=== PATIENT | male | born 1975 | race Two or more races ===

== ENCOUNTER 2022-06-14 12:20 | Inpatient (IN) | payer MEDICAID ==
[~2022-06-14] VITALS: Ht 172.7 cm; Wt 80.8 kg
[2022-06-14 13:25] LABS: Basophils # (auto) 0.1 10 ^3/uL (0-0.2); Eosinophils # (auto) 0.2 10 ^3/uL (0-0.8); Hemoglobin 8.1 g/dL (13.5-17.5); Nucleated Red Blood Cells % 0.1 %
[2022-06-14 13:26] LABS: Eosinophils % (auto) 3.1 % (0.0-7.0); Hematocrit 27.3 % (41.0-53.0); Lymphocytes # (auto) 1.3 10 ^3/uL (0.4-5.4); Lymphocytes % (auto) 26.2 % (10.0-50.0); Mean Corpuscular Hemoglobin 18.4 pg (28.0-32.0); Mean Corpuscular Hgb Conc. 29.5 g/dL (32.0-36.0); Mean Corpuscular Volume 62.4 fL (80.0-100.0); Monocytes # (auto) 0.4 10 ^3/uL (0-1.3); Monocytes % (auto) 7.2 % (0.0-12.0); Neutrophils # (auto) 3.1 10 ^3/uL (1.6-8.6); Neutrophils % (auto) 62.5 % (37.0-80.0); Red Blood Cells 4.38 10^6/uL (4.5-5.90)
[2022-06-14 13:43] LABS: Albumin 2.9 g/dL (3.4-5.0); BUN/Creatinine Ratio 7.5; Calcium 8.2 mg/dL (8.5-10.1); Potassium 3.4 mmol/L (3.5-5.1)
[2022-06-14 13:44] LABS: Red Cell Distribution Width 21.8 % (11.8-14.3)
[2022-06-14 13:46] LABS: Bilirubin, Total 2.1 mg/dL (0.2-1.0); Total Protein 6.3 g/dL (6.4-8.2)
[2022-06-14] MEDS ORDERED: ONDANSETRON HCL 4 MG/2 ML VIAL IV PRN (19:30)
[2022-06-14] MEDS ORDERED: PANTOPRAZOLE 40 MG/10 ML VIAL INJ IV ONE (19:30)
[2022-06-14] MEDS ORDERED: SODIUM CHLORIDE 0.9% 2,000 ML IV ONE (19:30)
[2022-06-14 20:43] LABS: INR 1.51 (0.9-1.15)
[2022-06-14 20:47] LABS: % Iron Saturation 4.8 % (20-55)
[2022-06-14 20:53] LABS: Cholesterol 89 mg/dL (< 200); HDL Cholesterol 43 mg/dL (40-59); LDL Cholesterol 51 mg/dL (< 100); Triglycerides 44 mg/dL (< 150)
[2022-06-14 20:59] LABS: Folate (Folic Acid) > 24.00 ng/mL (5.38-24)
[2022-06-14] MEDS: HYDROcodone-ACET 5/325MG TAB PO PRN (22:47)
[2022-06-14] MEDS: LACTATED RINGER'S 1,000 ML IV SCH (22:52)
[2022-06-15] MEDS: HYDROcodone-ACET 5/325MG TAB PO PRN ×2 (04:55→18:41)
[2022-06-15] MEDS: FERROUS SULFATE 325mg EC TAB PO SCH ×2 (04:56→06:00)
[2022-06-15] MEDS: LACTATED RINGER'S 1,000 ML IV SCH (04:57)
[2022-06-15] MEDS ORDERED: POTASSIUM CHL 20 Meq TABLET PO ONE (05:15)
[2022-06-15] MEDS: POTASSIUM CHL 20MEQ/100ML 100 ML IV SCH (05:32)
[2022-06-15 05:42] LABS: Basophils # (auto) 0 10 ^3/uL (0-0.2); Eosinophils # (auto) 0.1 10 ^3/uL (0-0.8); Mean Corpuscular Hemoglobin 18.6 pg (28.0-32.0); Monocytes # (auto) 0.3 10 ^3/uL (0-1.3); Neutrophils # (auto) 3.4 10 ^3/uL (1.6-8.6); Nucleated Red Blood Cells % 0.1 %; Red Blood Cells 4.27 10^6/uL (4.5-5.90)
[2022-06-15 05:46] LABS: Basophils % (auto) 0.9 % (0.0-2.0); Eosinophils % (auto) 2.5 % (0.0-7.0); Hematocrit 28.2 % (41.0-53.0); Lymphocytes % (auto) 20.3 % (10.0-50.0); Mean Corpuscular Hgb Conc. 28.2 g/dL (32.0-36.0); Mean Corpuscular Volume 66.1 fL (80.0-100.0); Neutrophils % (auto) 69.3 % (37.0-80.0); White Blood Cell 4.9 10^3/uL (4.4-10.8)
[2022-06-15 05:48] LABS: Calcium 8.3 mg/dL (8.5-10.1); Potassium 3.9 mmol/L (3.5-5.1)
[2022-06-15 05:49] LABS: Red Cell Distribution Width 21.6 % (11.8-14.3)
[2022-06-15 05:59] LABS: BUN/Creatinine Ratio 7.9; Bilirubin, Total 2.8 mg/dL (0.2-1.0)
[2022-06-15] MEDS: PANTOPRAZOLE 40 MG/10 ML VIAL INJ IV SCH (10:47)
[2022-06-15 12:35] LABS: Carcinoembryonic Antigen 4.63 ng/mL (<5.0 OR =); Ferritin 3.2 ng/mL (10-322)
[2022-06-15] MEDS ORDERED: MORPHINE SULFATE INJ 2 MG/ml SYRG IV PRN (13:30)
[2022-06-15] MEDS: SUCRALFATE 1 GM/10 ML ORAL SUSP PO SCH ×2 (17:11→22:18)
[2022-06-15] MEDS ORDERED: ACETAMINOPHEN 325 MG TAB PO PRN (18:15)
[2022-06-15 18:30] VITALS: BP 117/66
[2022-06-15 22:00] VITALS: BP 117/66
[2022-06-16] MEDS: HYDROcodone-ACET 5/325MG TAB PO PRN (04:35)
[2022-06-16 05:00] VITALS: BP 96/62
[2022-06-16] MEDS: SUCRALFATE 1 GM/10 ML ORAL SUSP PO SCH ×3 (06:14→21:36)
[2022-06-16 06:28] LABS: Basophils # (auto) 0 10 ^3/uL (0-0.2); Eosinophils # (auto) 0.1 10 ^3/uL (0-0.8); Hemoglobin 7.8 g/dL (13.5-17.5); Lymphocytes # (auto) 0.9 10 ^3/uL (0.4-5.4); Monocytes # (auto) 0.2 10 ^3/uL (0-1.3); Monocytes % (auto) 6.3 % (0.0-12.0)
[2022-06-16 06:30] LABS: Eosinophils % (auto) 3.4 % (0.0-7.0); Lymphocytes % (auto) 28.8 % (10.0-50.0); Mean Corpuscular Hemoglobin 18.7 pg (28.0-32.0); Mean Corpuscular Hgb Conc. 28.8 g/dL (32.0-36.0); Neutrophils # (auto) 1.8 10 ^3/uL (1.6-8.6); Neutrophils % (auto) 60.5 % (37.0-80.0); Nucleated Red Blood Cells % 0.2 %; Red Blood Cells 4.15 10^6/uL (4.5-5.90)
[2022-06-16 06:41] LABS: BUN/Creatinine Ratio 4.5; Calcium 8.2 mg/dL (8.5-10.1); Magnesium 2.3 mg/dL (1.6-2.6); Potassium 4.1 mmol/L (3.5-5.1)
[2022-06-16 06:42] LABS: INR 1.51 (0.9-1.15); Partial Thromboplastin Time 31.3 sec (24.6-33.4)
[2022-06-16 06:51] LABS: Red Cell Distribution Width 21.1 % (11.8-14.3)
[2022-06-16 08:44] VITALS: BP 114/65
[2022-06-16] MEDS: PANTOPRAZOLE 40 MG/10 ML VIAL INJ IV SCH (09:46)
[2022-06-16] MEDS ORDERED: LIDOCAINE VISCOUS 2% 15ML UD ONE (12:31)
[2022-06-16] MEDS ORDERED: NALOXONE HCL 0.4 MG/ML VIAL ONE (12:31)
[2022-06-16] MEDS ORDERED: FLUMAZENIL 0.1 MG/ML INJ 10ML MDV IV ONE (12:31)
[2022-06-16 13:32] VITALS: BP 103/62
[2022-06-16] MEDS: diphenhdrAMINE HCL 50 MG/1 ML VL ONE ×2 (16:39→16:42)
[2022-06-16] MEDS: fentaNYL CITRATE 100 MCG/2 ML VL ONE ×2 (16:39→16:43)
[2022-06-16] MEDS: MIDAZOLAM HCL 2MG/2ML 2ml VIAL (1mg/ml) ONE ×2 (16:39→16:43)
[2022-06-16] MEDS ORDERED: SODIUM FERR GLUC 62.5MG/5ML 125 MG in SODIUM CHL 0.9% 100 ML IV ONE (17:15)
[2022-06-16 20:00] VITALS: BP 101/56
[2022-06-16 22:00] VITALS: BP 101/56
[2022-06-17 05:00] VITALS: BP 102/54
[2022-06-17 05:30] LABS: Basophils # (auto) 0 10 ^3/uL (0-0.2); Eosinophils # (auto) 0.1 10 ^3/uL (0-0.8); Hemoglobin 7.3 g/dL (13.5-17.5); Lymphocytes # (auto) 0.9 10 ^3/uL (0.4-5.4); Monocytes # (auto) 0.2 10 ^3/uL (0-1.3); White Blood Cell 3.8 10^3/uL (4.4-10.8)
[2022-06-17 05:34] LABS: Basophils % (auto) 0.5 % (0.0-2.0); Eosinophils % (auto) 2.7 % (0.0-7.0); Hematocrit 24.6 % (41.0-53.0); Lymphocytes % (auto) 22.9 % (10.0-50.0); Mean Corpuscular Hemoglobin 19.2 pg (28.0-32.0); Mean Corpuscular Hgb Conc. 29.5 g/dL (32.0-36.0); Mean Corpuscular Volume 65.1 fL (80.0-100.0); Monocytes % (auto) 6.5 % (0.0-12.0); Neutrophils # (auto) 2.6 10 ^3/uL (1.6-8.6); Neutrophils % (auto) 67.4 % (37.0-80.0); Nucleated Red Blood Cells % 0.1 %; Red Blood Cells 3.78 10^6/uL (4.5-5.90)
[2022-06-17 05:49] LABS: Red Cell Distribution Width 21.1 % (11.8-14.3)
[2022-06-17 05:51] LABS: Potassium 3.9 mmol/L (3.5-5.1)
[2022-06-17 05:58] LABS: BUN/Creatinine Ratio 5.8; Calcium 7.9 mg/dL (8.5-10.1)
[2022-06-17] MEDS: SUCRALFATE 1 GM/10 ML ORAL SUSP PO SCH ×2 (07:29→11:07)
[2022-06-17 08:28] LABS: Hepatitis B Surface Antibody Negative (Negative)
[2022-06-17 08:30] VITALS: BP 104/61
[2022-06-17 09:03] LABS: Hepatitis A Total Antibody Negative (Negative)
[2022-06-17] MEDS ORDERED: PANT40TA2 PO (09:57)
[2022-06-17] MEDS ORDERED: SUCR1TAB22 OR (09:57)
[2022-06-17] MEDS: PANTOPRAZOLE 40 MG/10 ML VIAL INJ IV SCH (10:30)
[2022-06-17 12:13] LABS: Hepatitis C Antibody Negative (Negative)
== END 2022-06-17 12:24 | disposition home or self-care (01) | DRG 241 ==
LOC: ER 12:20 → OVERFLOW 19:30 → EAST 06-15 18:00
PROVIDERS: ADMIT Registered Nurse; ATTEND Internal Medicine Geriatric Medicine
PROC: 0DB68ZX Excision of Stomach, Via Natural or Artificial Opening Endoscopic, Diagnostic (ICD-10-PCS; 2022-06-16)
PROC: 0DB58ZX Excision of Esophagus, Via Natural or Artificial Opening Endoscopic, Diagnostic (ICD-10-PCS; 2022-06-16)
PROC: 0DB98ZX Excision of Duodenum, Via Natural or Artificial Opening Endoscopic, Diagnostic (ICD-10-PCS; principal; 2022-06-16 16:26)
DX: K25.4 Chronic or unspecified gastric ulcer with hemorrhage (principal); K22.11 Ulcer of esophagus with bleeding; D68.4 Acquired coagulation factor deficiency; E44.1 Mild protein-calorie malnutrition; K70.30 Alcoholic cirrhosis of liver without ascites; E78.5 Hyperlipidemia, unspecified; D50.9 Iron deficiency anemia, unspecified; K42.9 Umbilical hernia without obstruction or gangrene; K76.0 Fatty (change of) liver, not elsewhere classified; Z20.822 Contact with and (suspected) exposure to COVID-19; Z68.27 Body mass index [BMI] 27.0-27.9, adult; K44.9 Diaphragmatic hernia without obstruction or gangrene
CPT/HCPCS: 36415; 43239; 74176; 76705; 80048; 80053; 80061; 80320; 82378; 82607; 82728; 82746; 82977; 83036; 83540; 83550; 83615; 83690; 83735; 84443; 85025; 85045; 85049; 85384; 85610; 85730; 86038; 86704; 86706; 86708; 86803; 86850; 86900; 86901; 87340; 87426; C9113; G0378; J2250